=== PATIENT | female | born 1985 | race Hispanic/Latino ===

== ENCOUNTER 2017-04-17 16:10 | Emergency (ER) | payer BC, OTHER ==
[2017-04-17 16:44] LABS: Bilirubin Negative (Negative); Blood, Urine Negative (Negative); Glucose, Urine (Dipstick) Negative (Negative); Ketone, Urine Negative (Negative); Nitrite Negative (Negative); Protein, Urine (Dipstick) 30 mg/dL (Neg-Trace); Urobilinogen 0.2 mg/dL (0.2-1.0)
[2017-04-17 16:46] LABS: Bacteria/HPF 1+ HPF (None Seen); Hyaline Casts/LPF 0-3 HYALINE CAST LPF (0-3 Hyaline)
== END 2017-04-17 18:20 | disposition home or self-care (01) ==
LOC: ERS 16:10
DX: G47.00 Insomnia, unspecified (principal); F20.9 Schizophrenia, unspecified; Z79.899 Other long term (current) drug therapy
CPT/HCPCS: 81003; 81015; 87077; 87086; 87186; 99283

== ENCOUNTER 2019-03-18 01:34 | Emergency (ER) | payer OTHER ==
[~2019-03-18 01:34] MED LIST: Adacel (T-DAP) 0.5 ML SYRINGE ONE
[2019-03-18] MEDS ORDERED: Lidocaine 1% (PF) 30 ML VIAL ONE (01:48)
--- NOTE | 2019-03-18 07:40 | CT ---
PRELIMINARY REPORT/[facility]/EMERGENCY AFTER HOURS PROCEDURE: PROCEDURE INFORMATION: Exam: CT Maxillofacial Without Contrast Exam date and time: 03/18/2019 1:54 AM Clinical history: 33 years old, female; Injury or trauma; Initial encounter; Abrasion; Forehead; Giselle ent HX: 33 y/o F presents to ED via EMS transport C/O head lac S/P mechanical fall this morning when PT slipped on a wet floor. No loc on fall TECHNIQUE: Imaging protocol: Computed tomography images of the contrast. COMPARISON: No relevant prior studies available. FINDINGS: Orbits: Orbits are normal. Globes are unremarkable. Sinuses: Normal. No air-fluid levels. Bones/joints: No fracture. Submandibular/Parotid glands: 9 mm right submandibular gland sialolith. No sialadenitis. Soft tissues: Unremarkable. IMPRESSION: 1. 9 mm right submandibular gland sialolith. No sialadenitis. 2. No fracture. Thank you for allowing us to participate in the care of your patient. Dictated and Authenticated by: Hill Rodriguez MD 03/18/2019 1:07 AM Central Time ([place] & [place]) FINAL REPORT CT FACIAL BONES WITHOUT CONTRAST: HISTORY: Laceration. Fall. COMPARISON: None. FINDINGS: Findings and impression are concordant with the preliminary report. IMPRESSION: Small left forehead laceration and subcutaneous emphysema. Transcribed Date/Time: 03/18/2019 8:11 AM
== END 2019-03-18 01:50 | disposition home or self-care (01) ==
LOC: ERS 01:34
DX: S01.81XA Laceration without foreign body of other part of head, initial encounter (principal); S01.112A Laceration without foreign body of left eyelid and periocular area, initial encounter; E78.5 Hyperlipidemia, unspecified; E78.00 Pure hypercholesterolemia, unspecified; I10 Essential (primary) hypertension; F32.9 Major depressive disorder, single episode, unspecified; F20.9 Schizophrenia, unspecified; Z23 Encounter for immunization; W01.0XXA Fall on same level from slipping, tripping and stumbling without subsequent striking against object, initial encounter
CPT/HCPCS: 70486; 90471; 90715; J2001

== ENCOUNTER 2019-05-11 16:53 | Emergency (ER) | payer MEDICAID, OTHER | END 2019-05-11 17:38 | disposition home or self-care (01) | LOC: ERS 16:53 | DX: S01.112D Laceration without foreign body of left eyelid and periocular area, subsequent encounter (principal); E78.00 Pure hypercholesterolemia, unspecified; E78.5 Hyperlipidemia, unspecified; G40.909 Epilepsy, unspecified, not intractable, without status epilepticus; F32.9 Major depressive disorder, single episode, unspecified; F20.9 Schizophrenia, unspecified; I10 Essential (primary) hypertension; W19.XXXD Unspecified fall, subsequent encounter ==

== ENCOUNTER 2020-03-13 17:28 | Emergency (ER) | payer MEDICAID, SELFPAY | END 2020-03-13 18:52 | disposition home or self-care (01) | LOC: ERS 17:28 | DX: H66.91 Otitis media, unspecified, right ear (principal); E78.5 Hyperlipidemia, unspecified; E78.00 Pure hypercholesterolemia, unspecified; G40.909 Epilepsy, unspecified, not intractable, without status epilepticus; I10 Essential (primary) hypertension; F32.9 Major depressive disorder, single episode, unspecified; F20.9 Schizophrenia, unspecified | CPT/HCPCS: 99282 ==

== ENCOUNTER 2021-01-24 09:45 | Emergency (ER) | payer MEDICAID, SELFPAY ==
[2021-01-24 11:36] LABS: Anisocytosis SLIGHT = 6-15 cells (100X) (0-5/hpf); Band 3 % (5-11); Eosinophils 6 % (0-10); Hemoglobin 8.9 g/dL (12.0-16.0); Hypochromia SLIGHT = 6-15 cells (100X) (0-5/hpf); Lymphocytes 37 % (21-51); MDiff Complete? YES; Mean Corpuscular Hemoglobin 20.4 pg (27.0-31.0); Mean Corpuscular Volume 67.9 fL (78.0-98.0); Microcytosis SLIGHT = 6-15 cells (100X) (0-5/hpf); Monocytes 4 % (0-10); Neutrophil 50 % (42-75); Platelet Clumps SLIGHT; Platelet Count 240 thou/uL (130-400); Platelet Morphology Comment Appears Adequate; RBC Distribution Width 18.5 % (11.5-14.5); Red Blood Cell (RBC) Count 4.35 mill/uL (4.20-5.40); White Blood Cell (WBC) Count 9.9 thou/uL (4.8-10.8)
[2021-01-24 11:42] LABS: ALT (SGPT) 121 U/L (8-55); AST (SGOT) 116 U/L (5-34); Albumin 3.8 g/dL (3.5-5.0); Alkaline Phosphatase 83 U/L (40-110); Anion Gap 12 mmol/L (10-20); BUN (Urea Nitrogen) 6 mg/dL (7.0-18.7); Bilirubin, Total 0.3 mg/dL (0.2-1.2); Calc. Creatinine Clearance 0 mL/min (70-130); Calcium 9.2 mg/dL (7.8-10.44); Carbon Dioxide 21 mmol/L (22-29); Chloride 110 mmol/L (98-107); Globulin 3.2 g/dL (2.4-3.5); Glucose 103 mg/dL (70-105); Potassium 3.9 mmol/L (3.5-5.1); Sodium 139 mmol/L (136-145)
== END 2021-01-24 12:46 | disposition home or self-care (01) ==
LOC: ERS 09:45
DX: G47.00 Insomnia, unspecified (principal); H57.13 Ocular pain, bilateral; R00.0 Tachycardia, unspecified; R07.89 Other chest pain; I10 Essential (primary) hypertension; E78.5 Hyperlipidemia, unspecified; G40.909 Epilepsy, unspecified, not intractable, without status epilepticus; E78.00 Pure hypercholesterolemia, unspecified; E87.6 Hypokalemia; E66.9 Obesity, unspecified; F20.9 Schizophrenia, unspecified
CPT/HCPCS: 71045; 80053; 84443; 84484; 85025; 85379; 93005

== ENCOUNTER 2021-09-15 21:10 | Emergency (ER) | payer OTHER ==
[2021-09-15 22:17] LABS: #Basophils 0.1 thou/uL (0.0-0.2); #Eosinphils 0.3 thou/uL (0.0-0.7); #Lymphocytes 2.9 thou/uL (1.20-3.40); #Monocytes 0.7 thou/uL (0.11-0.59); #Neutrophils 5.9 thou/uL (1.40-6.50); %Basophils 0.8 % (0.0-1.0); %Eosinophils 2.9 % (0.0-10.0); %Lymphocytes 29.6 % (21.0-51.0); %Monocytes 7.3 % (0.0-10.0); %Neutrophils 59.4 % (42.0-75.0); Hemoglobin 8.6 g/dL (12.0-16.0); Mean Corpuscular HGB CONC 29.6 g/dL (32.0-36.0); Mean Corpuscular Hemoglobin 20.8 pg (27.0-31.0); Mean Corpuscular Volume 70.1 fL (78.0-98.0); Mean Platelet Volume 9.7 fL (7.4-10.4); Platelet Count 330 thou/uL (130-400); RBC Distribution Width 17.6 % (11.5-14.5); Red Blood Cell (RBC) Count 4.12 mill/uL (4.20-5.40); White Blood Cell (WBC) Count 9.9 thou/uL (4.8-10.8)
[2021-09-15 22:37] LABS: ALT (SGPT) 109 U/L (8-55); AST (SGOT) 104 U/L (5-34); Albumin 3.7 g/dL (3.5-5.0); Alkaline Phosphatase 100 U/L (40-110); Anion Gap 14 mmol/L (10-20); BUN (Urea Nitrogen) 11 mg/dL (7.0-18.7); Bilirubin, Total 0.4 mg/dL (0.2-1.2); Calc. Creatinine Clearance 0 mL/min (70-130); Calcium 9.6 mg/dL (7.8-10.44); Carbon Dioxide 20 mmol/L (22-29); Chloride 108 mmol/L (98-107); Globulin 3.3 g/dL (2.4-3.5); Glucose 147 mg/dL (70-105); Sodium 138 mmol/L (136-145)
== END 2021-09-16 01:35 | disposition home or self-care (01) ==
LOC: ERS 21:10
DX: D64.9 Anemia, unspecified (principal); R06.02 Shortness of breath
CPT/HCPCS: 36415; 36430; 80053; 85025; 86850; 86900; 86901; P9016

== ENCOUNTER 2022-02-07 23:07 | Emergency (ER) | payer OTHER ==
[2022-02-08] MEDS ORDERED: Acetaminophen 500 MG TAB ONE (00:34)
[2022-02-08] MEDS ORDERED: Mag-Al 1200 mg/1200 mg/30 ML UDCUP ONE (00:34)
[2022-02-08] MEDS ORDERED: Lidocaine Viscous Sol 2% 15 ml UD Cup ONE (00:37)
== END 2022-02-08 00:47 | disposition home or self-care (01) ==
LOC: ERS 23:07
DX: S01.512A Laceration without foreign body of oral cavity, initial encounter (principal); X58.XXXA Exposure to other specified factors, initial encounter
CPT/HCPCS: 99283

== ENCOUNTER 2023-02-14 22:13 | Emergency (ER) | payer OTHER | END 2023-02-15 02:05 | disposition home or self-care (01) | LOC: ERS 22:13 | DX: G47.00 Insomnia, unspecified (principal) | CPT/HCPCS: 99283 ==

== ENCOUNTER 2023-03-31 18:52 | Emergency (ER) | payer OTHER | END 2023-03-31 20:41 | disposition home or self-care (01) | LOC: ERS 18:52 | DX: G47.00 Insomnia, unspecified (principal) | CPT/HCPCS: 99283 ==

== ENCOUNTER 2023-11-25 08:46 | Emergency (ER) | payer OTHER | END 2023-11-25 09:27 | disposition home or self-care (01) | LOC: ERS 08:46 | DX: M79.671 Pain in right foot (principal); F20.9 Schizophrenia, unspecified; Z55.6 Problems related to health literacy | CPT/HCPCS: 99283 ==

== ENCOUNTER 2023-12-10 15:37 | Emergency (ER) | payer OTHER | END 2023-12-10 17:05 | disposition home or self-care (01) | LOC: ERS 15:37 | DX: M72.2 Plantar fascial fibromatosis (principal) ==

== ENCOUNTER 2024-01-07 17:53 | Emergency (ER) | payer OTHER ==
[2024-01-07] MEDS ORDERED: Proparacaine 0.5% Opth 15 ML BOT ONE (18:12)
== END 2024-01-07 18:51 | disposition home or self-care (01) ==
LOC: ERS 17:53
DX: H57.13 Ocular pain, bilateral (principal); E11.9 Type 2 diabetes mellitus without complications
CPT/HCPCS: 99283

== ENCOUNTER 2024-04-14 23:10 | Emergency (ER) | payer OTHER | END 2024-04-14 23:36 | disposition home or self-care (01) | LOC: ERS 23:10 | DX: G47.00 Insomnia, unspecified (principal); R73.03 Prediabetes; R03.0 Elevated blood-pressure reading, without diagnosis of hypertension | CPT/HCPCS: 99283 ==